=== PATIENT | female | born 1985 | race Asian ===

== ENCOUNTER 2017-12-09 19:34 | Emergency (ER) | payer BC, SELFPAY ==
[2017-12-09] MEDS ORDERED: Lidocaine 1% PF 5 ML VIAL ONE (21:17)
== END 2017-12-09 21:56 | disposition home or self-care (01) ==
LOC: ERS 19:34
DX: S60.931A Unspecified superficial injury of right thumb, initial encounter (principal); W26.8XXA Contact with other sharp object(s), not elsewhere classified, initial encounter
CPT/HCPCS: 99283; J2001

== ENCOUNTER 2019-09-30 18:18 | Day surgery (SDC) | payer BC, OTHER ==
[2019-09-30 19:03] VITALS: BMI 21.2
[2019-09-30] MEDS ORDERED: hydrALAZINE 20 MG/ML VIAL SLOW IVP PRN (19:22)
--- NOTE | 2019-09-30 19:31 | PDOC.FPROB ---
FMR OB H&P: HPI - History of Present Illness Chief Complaint: LOF Indentification: 33 yo @ History of Present Illness: pt comes in for concern for water breaking. Reports an hour ago had a large amount of fluid that wet her pants. Denies any dribbling or leaking since. Denies any urinary sx's. Denies any burning when peeing. Denies any vaginal itching, discharge or irritation. Denies any fever or chills. Denies any n/v. Primary Care Physician: Allison FMR OB H&P: Current - Care : 2 Para: 1 Gestational age: 35.4 Due date: 10/31/19 - OB Labs Blood type: A RH: positive Antibody Screen: negative HIV: negative RPR: negative HepBsAg: negative Rubella: immune Quad screen: unknown Urine drug screen: not done Gonorrhea: unknown Chlamydia: unknown GBS: negative H&H: Additional labs: tsh 2.8 HCV negative FMR OB H&P: History - Past Medical History PMH: None - OB History OB History: Prior T SVDx1 - [employer] History [employer] History: No hx of STD or abnormal pap smears - Surgical History Sx History: None - Social History Social History: Denies any smoking, drinking, or illicit drug use - Family History Family History: Noncontributory FMR OB H&P: Medications - Current Home Medications: Medication Instructions Recorded Confirmed Type Pnv No.95/Ferrous Fum/Folic AC 100 mg PO DAILY 09/30/19 09/30/19 History [ [place]] Allergies/Adverse Reactions: Allergies Allergy/AdvReac Type Severity Reaction Status Date / Time No Known Allergies Allergy Verified 09/30/19 19:04 FMR OB H&P: ROS - Review of Systems General: denies: fever/chills, weight/appetite/sleep changes, night sweats Eyes: denies: vision changes ENT: denies: nasal congestion, rhinorrhea, sore throat Cardiovascular: denies: chest pain, palpitation, edema, paroxysmal nocturnal dyspnea, orthopnea Respiratory: denies: cough, shortness of breath, exercise intolerance Gastrointestinal: denies: abdominal pain, indigestion, bloating, cramping, nausea, vomiting, diarrhea, constipation Genitourinary (Female): reports: contractions (reports intemittent contracitons) . denies: incontinence, dysuria, hematuria, hesitancy, vaginal discharge, vaginal pain, vaginal bleeding, vaginal mass/sore, vaginal pressure Musculoskeletal: denies: pain, stiffness, tenderness Neurologic: denies: numbness, weakness Integumentary: denies: itching, rash, lesions Breast: denies: lumps, bumps FMR OB H&P: Vital Signs - Heart Tones Baseline: 140 Variability: moderate Acceleration: present Deceleration: absent Category: category 1 [place] contractions every: 7 FMR OB H&P: Physical Exam - Physical Exam General: NAD, awake, alert and oriented HEENT: normocephalic and atraumatic, grossly normal vision, grossly normal hearing Neck: supple, FROM Heart: RRR, normal S1/S2, no murmurs/rubs/gallops, pulses present, no edema General: CTAB, no respiratory distress, good air movement, no rales/rhonchi, no wheezing, no retractions Abdomen: soft, gravid, fundus(cm), non-tender, bowel sound present, no masses, no hernias Musculoskeletal: normal gait and station, pulses present, FROM in all four extremities Neurological: sensation to pain,touch and proprioception grossly normal Skin: no rash, good tugor Lymphatic: no unusual bruising or bleeding Psychiatric: intact recent and remote memory, normal mood and affect - Pelvic Exam Vulva: normal hair distribution, no discharge Cervix: no masses, no lesions, no blood (No pooling noted. Had pt bear down and no fluid noted) FMR OB H&P: A/P - Problem List (1) Current Visit: Yes Status: Acute Disposition: 33 yo @ 35.4 days presents with concern for LOF -Amnisure negative -No pooling noted and sterile speculum exam. Normal vaginal discharge noted. No sign of bleeding. Had pt bear down and no fluid noted. -FHR 140. Cat 1 strip. Discussed return precautions. Dispo: pt to be d/c home. No ROM noted on sterile spec and amnisure test. f/u with OB provider for regularly devonte appointments. Discussion: Date/Time: 09/30/191928 This H&P was discussed with [] and [] who agree with the above documentation and plan.
[2019-09-30 19:43] LABS: Amnisure Test No Membranes Rupture (No Rupture)
[2019-09-30 19:44] LABS: Amnisure Internal Control QC ACCEPTABLE (ACCEPTABLE)
--- NOTE | 2019-09-30 19:52 | PDOC.EVN ---
Event Note - Event Note Event Note: OBGYN Note: at 34 and 5 weeks with suspect LOF. I have seen and evaluated the patient at bedside. SSE by Dr Tai was negative for ROM and amnisure also negative. OK for outpatient care
[2019-09-30] MEDS ORDERED: FLU VACC QS2019-20(6MOS UP)/PF 60 MCG/0.5 ML SYRINGE IM ONE (20:00)
== END 2019-09-30 20:03 | disposition home or self-care (01) ==
LOC: L&D/OP 18:18
PROVIDERS: ATTEND Obstetrics & Gynecology
DX: O99.89 Other specified diseases and conditions complicating pregnancy, childbirth and the puerperium (principal); N89.8 Other specified noninflammatory disorders of vagina; Z3A.35 35 weeks gestation of pregnancy
CPT/HCPCS: 84112; 99283

== ENCOUNTER 2019-10-26 07:30 | Inpatient (IN) | payer BC, MEDICAID ==
[2019-10-26] MEDS ORDERED: Ondansetron PF 4 MG/2 ML Vial IVP PRN ×3 (10:14→13:43)
[2019-10-26] MEDS ORDERED: hydrALAZINE 20 MG/ML VIAL SLOW IVP PRN ×2 (10:14→13:43)
[2019-10-26] MEDS ORDERED: Promethazine HCl 25 MG/ML VIAL IM PRN ×3 (10:14→13:43)
[2019-10-26] MEDS ORDERED: Bicitra 30 ML UDCUP PO SCH (10:15)
[2019-10-26] MEDS ORDERED: CEFAZOLIN 2 GM in Premix Bag 1 BAG IVPB SCH (10:15)
--- NOTE | 2019-10-26 10:21 | PDOC.LDHP ---
Labor and Delivery H&P Chief complaint: scheduled section HPI: 34 y/o at 39 and 2/7 weeks presents for medically indicated primary C- Section for fetus with abnormally large head size, and suspected CPD. [facility] consultation in [place] supported this decision. Current gestational age (weeks): 39 Due date: 10/31/19 Grav: 2 Para: 1 Current complications: none Abnormal US findings: Yes (As Above) Current medications: pre- vitamins Allergies/Adverse Reactions: Allergies Allergy/AdvReac Type Severity Reaction Status Date / Time No Known Allergies Allergy Verified 09/30/19 19:04 Social history: none - Physical Exam Vital signs reviewed and normal: yes General: NAD, resting Heart: RRR Lungs: CTAB Abdomen: gravid Extremeties: no edema FHT: category 1 - Assessment L&D Assessment: scheduled primary section - Plan Plan: admit to L&D, to OR for section
[2019-10-26] MEDS: Lactated Ringer's 1,000 ML IV SCH ×2 (10:45→20:10)
[2019-10-26 10:50] LABS: Hemoglobin 12.6 g/dL (12.0-16.0); Mean Corpuscular HGB CONC 34.1 g/dL (32.0-36.0); Mean Corpuscular Hemoglobin 29.5 pg (27.0-31.0); Mean Corpuscular Volume 86.5 fL (78.0-98.0); Mean Platelet Volume 8.8 fL (7.4-10.4); Platelet Count 241 thou/uL (130-400); RBC Distribution Width 12.1 % (11.5-14.5); Red Blood Cell (RBC) Count 4.27 mill/uL (4.20-5.40); White Blood Cell (WBC) Count 9.4 thou/uL (4.8-10.8)
[2019-10-26 11:22] VITALS: BMI 21.8
[2019-10-26 11:27] LABS: Syphilis Antibody Nonreactive (Nonreactive); Syphilis Antibody Index 0.05 S/CO (<1.00 Non-Reactive)
[2019-10-26 11:28] LABS: HBSAg Index 0.21 S/CO (0-0.99); Hep B Surf Ag Non-Reactive S/CO (NonReactive)
[2019-10-26] MEDS ORDERED: MORPHINE 5 MG/10 ML PF VIAL ONE (12:25)
[2019-10-26] MEDS ORDERED: EPHEDRINE 25 MG/5 ML SYRINGE ONE (12:25)
[2019-10-26] MEDS ORDERED: Dexamethasone 4 mg/ml Vial ONE (12:25)
[2019-10-26] MEDS ORDERED: Oxytocin 10 UNITS/ML VIAL ONE (12:25)
[2019-10-26] MEDS ORDERED: Ondansetron PF 4 MG/2 ML Vial ONE (12:25)
[2019-10-26] MEDS ORDERED: PHENYLEPHRINE-NS 100 MCG/ML 10 ML SYRINGE ONE (12:41)
[2019-10-26] MEDS ORDERED: Ketorolac Tromethamine 30 MG/ML VIAL IVP PRN (13:40)
[2019-10-26] MEDS ORDERED: Naloxone HCl 0.4 mg/ml Vial IVP PRN (13:40)
[2019-10-26] MEDS ORDERED: Promethazine HCl 25 MG SUPP PR PRN (13:40)
[2019-10-26] MEDS ORDERED: Naloxone HCl 0.4 mg/ml Vial IV PRN (13:40)
[2019-10-26] MEDS ORDERED: diphenhydrAMINE 50 MG/ML VIAL IVP PRN (13:40)
[2019-10-26] MEDS ORDERED: Fentanyl 100 MCG/2 ML VIAL ONE (13:41)
[2019-10-26] MEDS ORDERED: Lanolin Ointment 7 GM TUBE TOP PRN (13:43)
[2019-10-26] MEDS ORDERED: Measles/Mumps/Rubella 10 MCG/0.5 ML VIAL SC ONE (13:43)
[2019-10-26] MEDS ORDERED: Misoprostol 200 MCG TAB PR PRN (13:43)
[2019-10-26] MEDS ORDERED: Bisacodyl 10 MG SUPP PR PRN (13:43)
[2019-10-26] MEDS ORDERED: Methylergonovine 0.2 MG/ML VIAL IM PRN (13:43)
[2019-10-26] MEDS ORDERED: Adacel (T-DAP) 0.5 ML SYRINGE IM ONE (13:43)
[2019-10-26] MEDS ORDERED: Varicella virus, LIVE 0.5 ML VIAL SC ONE (13:43)
[2019-10-26] MEDS ORDERED: Zolpidem Tartrate 5 MG TAB PO PRN (13:43)
[2019-10-26] MEDS ORDERED: NS / Oxytocin 40 units/1000ml 1,000 ML IV SCH (13:45)
[2019-10-26] MEDS ORDERED: Communication Order-Pharmacy FS SCH (13:45)
[2019-10-26] MEDS ORDERED: Naloxone HCl 0.4 mg/ml Vial ONE (16:42)
[2019-10-26] MEDS: Naloxone HCl 0.4 mg/ml Vial IVP PRN ×2 (16:46→17:39)
[2019-10-26] MEDS: Docusate Calcium (SURFAK) 240 MG CAP PO SCH (23:42)
[2019-10-27] MEDS ORDERED: HYDROcodone/Acetaminophen 5/325 mg Tablet PO PRN ×2 (01:45)
[2019-10-27 06:00] LABS: Hemoglobin 10.6 g/dL (12.0-16.0); Mean Corpuscular HGB CONC 34.5 g/dL (32.0-36.0); Mean Corpuscular Volume 86.8 fL (78.0-98.0); Mean Platelet Volume 8.1 fL (7.4-10.4); Platelet Count 178 thou/uL (130-400); Red Blood Cell (RBC) Count 3.53 mill/uL (4.20-5.40); White Blood Cell (WBC) Count 14.2 thou/uL (4.8-10.8)
[2019-10-27] MEDS ORDERED: FLU VACC QS2019-20(6MOS UP)/PF 60 MCG/0.5 ML SYRINGE IM ONE (09:00)
[2019-10-27] MEDS: Simethicone Chewable 80 MG TAB PO PRN (09:27)
[2019-10-27] MEDS: Prenatal Vitamin 1 TAB PO SCH (10:44)
[2019-10-27] MEDS: Docusate Calcium (SURFAK) 240 MG CAP PO SCH ×2 (10:44→20:21)
--- NOTE | 2019-10-27 18:22 | PDOC.PP ---
Post Progress Note Post Day #: 1 PO intake tolerated: yes Flatus: yes Ambulation: yes Vital Signs (12 hours) Temp Pulse Resp BP Pulse Ox 10/27/19 16:52 99.2 F 88 12 113/59 L 96 10/27/19 11:35 98.7 F 79 20 118/58 L 10/27/19 08:11 98.6 F 88 20 120/87 97 10/27/19 06:25 18 Weight Weight 123 lb - Physical Examination General: NAD Cardiovascular: no m/r/g, RRR Respiratory: clear to auscultation bilaterally, non-labored breathing Abdominal: + bowel sounds, lochia, no distention, appropriately TTP Extremities: negative homans (B) Skin: CS incision dry & intact, no rash Neurological: no gross focal deficits Psychiatric: A&Ox3, normal affect Result Diagrams: 10/27/19 05:45 Additional Labs: Post Labs Blood Type A POSITIVE 10/26/19 10:58 Hep Bs Antigen Non-Reactive S/CO (NonReactive) 10/26/19 10:14
[2019-10-27] MEDS: Ibuprofen 800 MG TAB PO SCH (20:22)
[2019-10-28] MEDS: Simethicone Chewable 80 MG TAB PO PRN ×2 (01:12→09:36)
[2019-10-28] MEDS: Ibuprofen 800 MG TAB PO SCH ×2 (05:37→14:05)
[2019-10-28] MEDS: Prenatal Vitamin 1 TAB PO SCH (09:36)
[2019-10-28] MEDS: Docusate Calcium (SURFAK) 240 MG CAP PO SCH (09:36)
[2019-10-28 11:40] VITALS: BP 110/66; TEMP 98.9
--- NOTE | 2019-10-28 15:28 | PDOC.PP ---
Post Progress Note Post Day #: 2 PO intake tolerated: yes Flatus: yes Ambulation: yes Vital Signs (12 hours) Temp Pulse Resp BP Pulse Ox 10/28/19 11:39 98.9 F 72 20 110/66 10/28/19 08:13 97.8 F 78 20 117/76 97 10/28/19 05:32 98.0 F 72 14 118/70 97 Weight Weight 123 lb - Physical Examination General: NAD Cardiovascular: no m/r/g, RRR Respiratory: clear to auscultation bilaterally, non-labored breathing Abdominal: + bowel sounds, lochia, no distention Extremities: negative homans (B) Skin: CS incision dry & intact, no rash Neurological: no gross focal deficits Psychiatric: A&Ox3, normal affect (DC to home) Result Diagrams: 10/27/19 05:45 Additional Labs: Post Labs Blood Type A POSITIVE 10/26/19 10:58 Hep Bs Antigen Non-Reactive S/CO (NonReactive) 10/26/19 10:14
[2019-10-28] MEDS ORDERED: FLU VACC QS2019-20(6MOS UP)/PF 60 MCG/0.5 ML SYRINGE IM ONE (16:15)
--- NOTE | 2019-10-28 17:24 | OP ---
DATE OF PROCEDURE: 10/26/2019 TIME OF SERVICE: 1252 hours central daylight savings time. PREOPERATIVE DIAGNOSIS: Intrauterine at 39 weeks and 2 days with a history of macrocephaly and recommended section by [facility] in [place]. POSTOPERATIVE DIAGNOSIS: Intrauterine at 39 weeks and 2 days with a history of macrocephaly and recommended section by [facility] in [place]. PROCEDURE PERFORMED: Primary low transverse section. FINDINGS: Viable male , weighing 3721 grams or 8 pounds and 3 ounces. Apgars 8 and 9. ESTIMATED BLOOD LOSS: In this case with a quantitative blood loss of 400 mL. COMPLICATIONS: None. DETAILS OF THE PROCEDURE: The patient was consented and taken back to the operating room where spinal anesthesia was found to be adequate. She was then prepped and draped in the normal sterile fashion. A timeout was performed by the entire operative team. The incision was then marked with a marking pen tested using sharp pickups. An incision was then made with a scalpel. The incision was carried through the adipose tissue down to the underlying rectus fascia using both sharp dissection as well as cautery. Once the fascia was identified, it was incised in the midline and then the fascial incision was carried through in both lateral directions using sharp as well as cautery dissection techniques. Next, the superior aspect of the rectus fascia was grasped with 2 Yunier clamps, which was tented up and the rectus muscles were dissected off using blunt dissection as well as cautery dissection. Similarly, the inferior aspect of the fascial incision was grasped with 2 Yunier clamps, tented up and the rectus muscles were dissected off bluntly as well as sharply. Next, the rectus muscles were in the midline and the peritoneum identified. The peritoneum was then carefully grasped with 2 hemostats and entered sharply. The peritoneal incision was extended superiorly and inferiorly and bladder blade was placed in the lower abdomen. At this point, the uterus was identified and the bladder flap was then developed using pickups with teeth as well as Metzenbaum scissors in both lateral directions. The bladder flap was then dissected downwards using the surfacer operator's finger as well as Metzenbaum scissors. The bladder blade was replaced. The lower uterine segment was then identified and entered sharply using a clean scalpel. The uterine incision was then dissected downwards until thin layer of muscle remained and this was entered bluntly using a hemostat to avoid any injury to the baby. The uterine incision was then stretched using two fingers in both lateral directions. An amniotomy was performed artificially using a hemostat and the baby was delivered using fundal pressure in a gentle fashion. Once out, the baby's mouth and nose were bulb suctioned, cord clamped and cut, and the baby was handed to waiting attendants. Next, the uterus was exteriorized, cleared of all clots and debris and the uterine incision was repaired with #1 Monocryl in a running locking fashion. A 2nd suture of the same type was used to obtain complete hemostasis at the uterine incision. The bladder flap was reapproximated using 3-0 Monocryl. Next, patient's left and right adnexa were inspected and appeared to be within normal limits. The posterior cul-de-sac was blotted dry and hemostasis assured. One more look at the uterine incision demonstrated hemostasis. Next, the uterus was replaced back within the abdomen. The peritoneum was reapproximated using 2-0 Monocryl without difficulty. The rectus muscles were then allowed to come back together and 0 chromic was used to aid in reapproximation of the muscle as necessary. The rectus fascia was then reapproximated in a running fashion using 0 Vicryl suture. The adipose tissue was then examined and appeared to be well approximated without any obvious separations. Finally, the skin was reapproximated with 3-0 Monocryl on a Hilario needle without difficulty and Dermabond adhesive was applied to the skin. Once the glue was dry, the drapes were removed and the patient was transferred to an ambulatory bed where she was taken to recovery awake and in stable condition. Sponge, lap, and needle counts were correct x3. Job ID: [id number]
== END 2019-10-28 17:45 | disposition home or self-care (01) | DRG 788 ==
LOC: L&D 09:59 → 3SW 20:34
PROVIDERS: ADMIT Obstetrics & Gynecology; ATTEND Obstetrics & Gynecology
PROC: 10D00Z1 Extraction of Products of Conception, Low, Open Approach (ICD-10-PCS; principal; 2019-10-26)
PROC: 3E0234Z Introduction of Serum, Toxoid and Vaccine into Muscle, Percutaneous Approach (ICD-10-PCS; 2019-10-28)
PROC: 3E02340 Introduction of Influenza Vaccine into Muscle, Percutaneous Approach (ICD-10-PCS; 2019-10-28)
DX: O35.8XX0 Maternal care for other (suspected) fetal abnormality and damage, not applicable or unspecified (principal); Z3A.39 39 weeks gestation of pregnancy; Z37.0 Single live birth; Z23 Encounter for immunization
CPT/HCPCS: 36415; 51702; 85027; 86780; 86850; 86900; 86901; 87340; 90471; 90686; 90715; G0008; J0690; J1100; J2274; J2310; J2405; J2590; J3010

== ENCOUNTER 2021-01-30 15:46 | Emergency (ER) | payer OTHER, BC, MEDICAID | END 2021-01-30 16:30 | disposition home or self-care (01) | LOC: ERS 15:46 | DX: S16.1XXA Strain of muscle, fascia and tendon at neck level, initial encounter (principal); V89.2XXA Person injured in unspecified motor-vehicle accident, traffic, initial encounter | CPT/HCPCS: 99284 ==